=== PATIENT | female | born 1960 | race Caucasian/White ===

== ENCOUNTER 2017-03-12 02:24 | Inpatient (IN) | payer BC ==
[~2017-03-12] VITALS: Ht 170.2 cm; Wt 80.7 kg
[2017-03-12 02:49] LABS: BASOPHILS 0.3 % (0-2); EOSINOPHILS 0.9 % (0-7); HEMATOCRIT 43.5 % (36.0-48.0); HEMOGLOBIN 14.3 g/dL (12-16); IMMATURE GRANULOCYTES 0.4 % (0-5); LYMPHOCYTES 33.8 % (15-50); MCH 29.2 pg (26.0-34.0); MCHC 32.9 g/dL (31.0-37.0); MCV 88.8 fL (80.0-100.0); MEAN PLATELET VOLUME 9.8 fL (7.4-10.4); MONOCYTES 8.5 % (2-11); NEUTROPHILS 56.1 % (40-80); PLATELET COUNT 215 10x3/uL (130-400); RDW 13.1 % (11.5-14.5)
[2017-03-12 03:04] LABS: ALBUMIN 3.6 g/dL (3.4-5.0); ANION GAP 13.2 mmol/L (8-16); BILIRUBIN - TOTAL 0.29 mg/dL (0.2-1.3); CALCIUM 8.5 mg/dL (8.5-10.1); CARBON DIOXIDE 26.9 mmol/L (21.0-32.0); CREATININE - SERUM 0.9 mg/dL (0.6-1.3); POTASSIUM - SERUM 4.1 mmol/L (3.5-5.1); PROTEIN - SERUM 7.1 g/dL (6.4-8.2)
[2017-03-12] MEDS ORDERED: ZOFRAN4 MG PO (05:26)
[2017-03-12] MEDS ORDERED: CARAFATE1 G PO (05:26)
[2017-03-12 05:52] VITALS: BMI 27.9
[2017-03-12 05:59] VITALS: BP 99/60
[2017-03-12 08:13] VITALS: BP 111/75
[2017-03-12 09:54] LABS: APPEARANCE CLEAR (CLEAR); BILIRUBIN NEGATIVE (NEGATIVE); COLOR YELLOW (YELLOW); GLUCOSE NEGATIVE (NEGATIVE); KETONE NEGATIVE (NEGATIVE); LEUKOCYTE ESTERASE NEGATIVE (NEGATIVE); NITRITE NEGATIVE (NEGATIVE); PROTEIN NEGATIVE (NEGATIVE); SPECIFIC GRAVITY 1.015 (1.005-1.020); UROBILINOGEN NORMAL (NORMAL)
[2017-03-12 11:35] VITALS: BP 109/68
[2017-03-12 12:51] VITALS: Ht 170.2 cm; Wt 80.7 kg
[2017-03-12 15:55] LABS: BASOPHILS 0.2 % (0-2); EOSINOPHILS 0.9 % (0-7); HEMATOCRIT 43.2 % (36.0-48.0); HEMOGLOBIN 13.8 g/dL (12-16); IMMATURE GRANULOCYTES 0.4 % (0-5); LYMPHOCYTES 36.8 % (15-50); MCH 29.1 pg (26.0-34.0); MCHC 31.9 g/dL (31.0-37.0); MONOCYTES 8.4 % (2-11); NEUTROPHILS 53.3 % (40-80); RBC 4.75 10x6/uL (4.00-5.40); RDW 13.1 % (11.5-14.5); WBC 5.7 10x3/uL (4.8-10.8)
[2017-03-12 16:26] LABS: CALCIUM 8.2 mg/dL (8.5-10.1); CARBON DIOXIDE 29.9 mmol/L (21.0-32.0); CREATININE - SERUM 0.9 mg/dL (0.6-1.3); POTASSIUM - SERUM 3.9 mmol/L (3.5-5.1)
[2017-03-12 16:29] VITALS: BP 92/55
[2017-03-12 16:45] LABS: APTT 29.1 SECONDS (22.8-39.4); INR 1.02 (0.85-1.17); MCV 90.9 fL (80.0-100.0); PLATELET COUNT 169 10x3/uL (130-400); PROTIME 13.3 SECONDS (11.6-15.0)
--- NOTE | 2017-03-12 18:40 | NUR ---
PATIENT IN BED WITH IV INTACT. COMPLAINTS OF NECK PAIN AT THIS TIME. HOT PACK GIVEN TO PATIENT. PAIN PUMP ON AND WORKING. WANTS TYLENOL AT 1999 WHEN DUE FOR HEADACHE. FAMILY AT BEDSIDE, CALL LIGHT WITHIN REACH.
[2017-03-12 19:00] VITALS: BP 110/66
--- NOTE | 2017-03-12 20:47 | NUR ---
AWAKE,ALERT,ORIENTED. COMPLAINS OF H/A. TYLENOL SUPP GIVEN PER ORDERS.IV INFUSING TO LEFT HAND WIHOUT REDNESS OR EDEMA NOTED. UP AD RADHA TO BR. CL IN REACH.
--- NOTE | 2017-03-13 00:35 | NUR ---
PATIENT IS RESTING QUIETLY WITH EYES CLOSED. LAYING ON HER RIGHT SIDE. NO SIGNS OF DISTRESS NOTED. BED IN LOWEST POSITION, CALL LIGHT IN REACH. BED RIALS UP X'S 2.
[2017-03-13 00:55] VITALS: BP 110/52
--- NOTE | 2017-03-13 02:04 | NUR ---
RESTING QUIETLY. NO DISTRESS NOTED. CL IN REACH
[2017-03-13 04:00] VITALS: BP 94/52
[2017-03-13 05:28] LABS: BASOPHILS 0.5 % (0-2); EOSINOPHILS 0.9 % (0-7); HEMATOCRIT 38.4 % (36.0-48.0); HEMOGLOBIN 12.5 g/dL (12-16); IMMATURE GRANULOCYTES 0.2 % (0-5); LYMPHOCYTES 42.7 % (15-50); MCH 29.2 pg (26.0-34.0); MCHC 32.6 g/dL (31.0-37.0); MCV 89.7 fL (80.0-100.0); MONOCYTES 5.7 % (2-11); PLATELET COUNT 189 10x3/uL (130-400); RBC 4.28 10x6/uL (4.00-5.40); RDW 13.2 % (11.5-14.5); WBC 4.4 10x3/uL (4.8-10.8)
[2017-03-13 05:40] LABS: ALBUMIN 2.9 g/dL (3.4-5.0); ANION GAP 8.4 mmol/L (8-16); BILIRUBIN - TOTAL 0.42 mg/dL (0.2-1.3); CALCIUM 7.9 mg/dL (8.5-10.1); CARBON DIOXIDE 29.5 mmol/L (21.0-32.0); CREATININE - SERUM 0.9 mg/dL (0.6-1.3); POTASSIUM - SERUM 3.9 mmol/L (3.5-5.1); PROTEIN - SERUM 5.9 g/dL (6.4-8.2)
--- NOTE | 2017-03-13 06:13 | NUR ---
AWAKE WITH NO COMPLAINTS. CL IN REACH.
[2017-03-13 07:39] VITALS: BP 116/59
--- NOTE | 2017-03-13 08:32 | NUR ---
Patient Name: SAM TREADWELL Admission Status: ER Accout number: [id number] Admission Date: 03-12-2017 : 1960 Admission Diagnosis: Attending: STAR Current LOS: 1 Anticipated DC Date: 03-18-2017 Planned Disposition: Home Primary Insurance: Parental Health [facility] Discharge Planning Comments: CM MET WITH PATIENT REGARDING D/C NEEDS AND PLANS. PATIENT STATED SHE LIVES WITH HER SPOUSE (ELVIS) AND HE WILL DRIVE HER HOME AT DISCHARGE. PATIENT STATED THERE ARE 12 STEPS W/RAILS TO ENTER HER HOME AND NO STAIRS INSIDE. PATIENT IS INDEPENDENT WITH HER CARE AND HAS A GLUCOMETER (CHECKS 2X DAILY) AT HOME. PATIENTS PCP IS DR. LAY IN [place] AND SHE [facility]. PATIENT REFUSED HOME HEALTH AT THIS TIME. CM WILL CONTINUE TO FOLLOW PATIENT WITH D/C NEEDS AND PLANS. PCP DR. LAY ([place]) [facility]- [phone] ELVIS (SPOUSE) [phone] Manager Of Internal Audit: Ernestina Suarez Is the patient Alert and Oriented? Yes 0 * How many steps to enter\exit or inside your home? 12 W/RAILS 0 * PCP DR. LAY [facility] [place] 0 * [facility] * Preadmission Environment Home with Family 0 * ADLs Independent 0 * Equipment Glucometer 0 * List name and contact numbers for known caregivers / representatives who currently or will assist patient after discharge: ELVIS (SPOUSE) [phone] 0 * Community resources currently utilized None 0 * Additional services required to return to the preadmission environment? Yes 0 * Can the patient safely return to the preadmission environment? Yes 0 * Has this patient been hospitalized within the prior 30 days at any hospital? No 0 Grand Total: 0
--- NOTE | 2017-03-13 08:36 | NUR ---
AWAKE AND ALERT. ORIENTED X3. C/O SARKAR AT THIS TIME. LUNGS ARE CLEAR BILATERALLY, NO COUGH NOTED. SKIN IS INTACT WITHOUT REDNESS. REPORTS NAUSEA IS IMPROVED THIS AM BUT STILL SOME THERE. IV IS PATENT WITHOUT REDNESS AT INSERTION SITE. DENIES NEEDS.
--- NOTE | 2017-03-13 10:30 | NUR ---
DR. YE HERE. NEW ORDERS FOR CLEAR LIQUID RECEIVED. PATIENT VERY HAPPY FOR THIS.
--- NOTE | 2017-03-13 11:50 | NUR ---
FSBS 74. NO COVERAGE REQUIRED.
[2017-03-13 12:17] VITALS: BP 137/84
[2017-03-13 14:00] LABS: CKMB 0.2 U/L (0.0-3.6); CREATINE KINASE 67 UL (21-215)
[2017-03-13 14:04] LABS: TROPONIN-I < 0.017 ng/mL (0.000-0.060)
--- NOTE | 2017-03-13 14:27 | NUR ---
REQUESTED AND GIVNE 25MG DEMEROL SLOW IVP FOR C/O ABDOMINIAL PAIN LEVEL 9. WILL MONITOR.
[2017-03-13 15:35] VITALS: BP 117/69
--- NOTE | 2017-03-13 18:00 | NUR ---
ATE PART OF CL SUPPER. FSBS 133. USED PATIENTS MACHINE. NO COVERAGE REQUIRED. NO CHANGES NOTED AT THIS TIME. DENIES NEEDS. AT BEDSIDE.
[2017-03-13 18:57] LABS: CKMB 0.3 U/L (0.0-3.6); CREATINE KINASE 75 UL (21-215)
[2017-03-13 18:59] LABS: TROPONIN-I < 0.017 ng/mL (0.000-0.060)
[2017-03-13 19:00] VITALS: BP 118/62
--- NOTE | 2017-03-13 19:35 | NUR ---
RECIEVED SHIFT REPORT. PT IS LYING IN BED. ALERT AND ORIENTED AND ABLE TO VERBALIZE NEEDS. IV IS PATENT AND FLUIDS ARE RUNNING PER ORDER. PT IS AMBULATORY BUT WAS INSTRUCTED TO CALL FOR ANY ASSISTANCE NEEDED. PT STATES PAIN IS 8/10. NO NEEDS ARE VERBALIZED AT THIS TIME. WILL CONTINUE TO MONITOR. SIDE RAILS ARE UP X 2. BED IS IN LOWEST POSITION. CALL LIGHT IS WITHIN REACH.
--- NOTE | 2017-03-13 20:40 | NUR ---
SHIFT ASSESSMENT COMPLETED. PT C/O PAIN 03/21. ADMINISTERED PRESCRIBED PRN DEMEROL PER ORDER. ANTIBIOTIC HUNG PER ORDER. PT REFUSES SCHEDULED SENEKOT TABS STATING SHE IS STARTING TO HAVE BOWEL MOVEMENTS FROM SUPPOSITORIES. NO FURTHER NEEDS. WILL MONITOR. SIDE RAILS X 2. BED LOW. CALL LIGHT IN REACH.
[2017-03-14 04:00] VITALS: BP 101/52
[2017-03-14 05:23] LABS: BASOPHILS 0.2 % (0-2); EOSINOPHILS 0.9 % (0-7); HEMATOCRIT 39.3 % (36.0-48.0); HEMOGLOBIN 12.7 g/dL (12-16); IMMATURE GRANULOCYTES 0.2 % (0-5); LYMPHOCYTES 36.3 % (15-50); MCH 28.7 pg (26.0-34.0); MCHC 32.3 g/dL (31.0-37.0); MCV 88.7 fL (80.0-100.0); MEAN PLATELET VOLUME 10.2 fL (7.4-10.4); MONOCYTES 5.5 % (2-11); NEUTROPHILS 56.9 % (40-80); PLATELET COUNT 188 10x3/uL (130-400); RBC 4.43 10x6/uL (4.00-5.40); WBC 5.6 10x3/uL (4.8-10.8)
[2017-03-14 05:55] LABS: ALBUMIN 3.2 g/dL (3.4-5.0); BILIRUBIN - TOTAL 0.49 mg/dL (0.2-1.3); CALCIUM 8.4 mg/dL (8.5-10.1); CARBON DIOXIDE 27.6 mmol/L (21.0-32.0); CREATININE - SERUM 0.9 mg/dL (0.6-1.3); POTASSIUM - SERUM 3.6 mmol/L (3.5-5.1); PROTEIN - SERUM 6.5 g/dL (6.4-8.2)
--- NOTE | 2017-03-14 07:51 | NUR ---
AWAKE AND ALERT. ORIENTED X3. NO C/O THIS AM. LUNGS ARE CLEAR BILATERALLY, NO COUGH NOTED. SKIN IS INTACT WITHOUT REDNESS. IV TO LEFT HAND IS PATENT WITHOUT REDNESS. DENIES NEEDS.
[2017-03-14 08:31] VITALS: BP 108/66
--- NOTE | 2017-03-14 10:05 | NUR ---
UP TO SHOWER WITH SET UP ASSIST.
[2017-03-14 12:00] VITALS: BP 103/68
--- NOTE | 2017-03-14 12:00 | NUR ---
FSBS 109. NO COVERAGE REQUIRED.
--- NOTE | 2017-03-14 13:45 | NUR ---
REQUESTED AND GIVEN 25MG DEMEROL SLOW IVP FOR C/O ABDOMINAL PAIN LEVEL 3. WILL MONITOR.
[2017-03-14 15:47] VITALS: BP 105/54
--- NOTE | 2017-03-14 15:58 | NUR ---
RESTING QUIETLY IN BED WITH EYES CLOSED. C/O INCREASED PAIN AND NAUSEA IN ABDOMEN. WILL MONITOR.
--- NOTE | 2017-03-14 18:49 | NUR ---
REFUSED SUPPER TRAY TONIGHT. AT BEDSIDE. DENIES NEEDS. NO CHANGES NOTED.
[2017-03-14 19:50] VITALS: BP 124/68
--- NOTE | 2017-03-14 20:38 | NUR ---
AWAKE,ALERT. COMPLAINTS OF ABD AND HEADACHE PAIN. DEMEROL GIVEN PER ORDERS. IV INFUSING TO LEFT HAND WIHTOUT REDNESSS OR EDEMA NOTED. CL IN REACH
--- NOTE | 2017-03-14 21:15 | NUR ---
RECIEVED FROM RECOVERY ROOM. RESPONDS TO VERBAL STIMULI. DRSG TO RIGHT HIP DRY/INTACT. SPO2 @ 93 %. NO DISTRESS NOTED. LOPEZ PATENT AND DRAINING CL YELLOW URINE..CJ ROXIE ON. SIDE RAILS UP X 2. CL IN REACH
[2017-03-15 00:05] VITALS: BP 105/48
[2017-03-15 04:00] VITALS: BP 109/63
--- NOTE | 2017-03-15 04:58 | NUR ---
RN NOTE: PT RESTING QUIELTY IN SUPINE POSITION WITH EYES CLOSED AND UNLABORED BREATHING. IV IN RIGHT HAND PATENT WITH NS INFUSING AT 125 ML / HR. WILL CONTINUE TO MONITOR FOR NEEDS.
[2017-03-15 06:07] LABS: BASOPHILS 0.2 % (0-2); EOSINOPHILS 0.8 % (0-7); HEMOGLOBIN 12.9 g/dL (12-16); IMMATURE GRANULOCYTES 0.4 % (0-5); LYMPHOCYTES 36.5 % (15-50); MCH 29.1 pg (26.0-34.0); MCHC 33.1 g/dL (31.0-37.0); MONOCYTES 7.2 % (2-11); NEUTROPHILS 54.9 % (40-80); PLATELET COUNT 186 10x3/uL (130-400); RBC 4.43 10x6/uL (4.00-5.40); WBC 5.3 10x3/uL (4.8-10.8)
[2017-03-15 06:21] LABS: ALBUMIN 3.2 g/dL (3.4-5.0); ALKALINE PHOSPHATASE 63 U/L (46-116); ALT (SGPT) 59 U/L (10-68); AMYLASE - SERUM 43 U/L (25-115); BILIRUBIN - TOTAL 0.39 mg/dL (0.2-1.3); CALC OSMOLALITY 275 mosm/kg (275-300); CALCIUM 8.3 mg/dL (8.5-10.1); CARBON DIOXIDE 27.5 mmol/L (21.0-32.0); CHLORIDE - SERUM 105 mmol/L (98-107); CREATININE - SERUM 0.8 mg/dL (0.6-1.3); GLUCOSE 83 mg/dL (74-106); LIPASE 156 U/L (73-393); POTASSIUM - SERUM 3.6 mmol/L (3.5-5.1); PROTEIN - SERUM 6.5 g/dL (6.4-8.2); SODIUM 140 mmol/L (136-145); UREA NITROGEN 7 mg/dL (7-18); eGFR NON AFRICAN AMERICAN 78 mL/min (90-120)
--- NOTE | 2017-03-15 07:39 | NUR ---
AWAKE AND ALERT. ORIENTED X3. NO C/O THIS AM. LUNGS ARE CLEAR BILATERALLY, NO COUGH NOTED. SKIN IS INTACT WITHOUT REDNESS. IV TO LEFT HAND PATENT WITHOUT REDNESS AT INSERTION SITE. DENIES NEEDS.
[2017-03-15 07:55] VITALS: BP 119/69
--- NOTE | 2017-03-15 11:23 | NUR ---
CONTINUES WITH C/O INCREASED NAUSEA. GIVEN 8MG ZOFRAN SLOW IVP FOR SAME. WILL MONITOR.
--- NOTE | 2017-03-15 11:54 | NUR ---
REQUESTED AND GIVEN 25MG DEMEROL SLOW IVP FOR C/O ABDOMINAL PAIN LEVEL 9. WILL MONITOR.
--- NOTE | 2017-03-15 12:00 | NUR ---
FSBS 68. NO COVERAGE.
[2017-03-15 12:17] VITALS: BP 118/66
--- NOTE | 2017-03-15 13:46 | NUR ---
RESTING QUIETLY AT THIS TIME. PAIN IMPROVED SLIGHTLY. NAUSEA IMPROVED WELL WILL CONTINUE TO MONITOR.
--- NOTE | 2017-03-15 14:14 | NUR ---
NUTRITION MONITORING & EVAL CHART REVIEWED, PT CONTINUES CLEAR LIQUID DIET. IF UNABLE TO ADVANCE DIET 48 TO 72 HOURS, WILL NEED TO CONSIDER NUTRITION SUPPORT. RD FOLLOWING
--- NOTE | 2017-03-15 15:19 | NUR ---
RESTING QUIETLY IN BED WITH EYES CLOSED. RESPIRATIONS EVEN AND UNLABORED.
[2017-03-15 15:56] VITALS: BP 110/59
--- NOTE | 2017-03-15 19:00 | NUR ---
REPORT RECIEVED, INITIAL ASSESSMENT COMPLETE, PLEASE SEE FLOW SHEETS FOR DETAILS. BED LOW AND LOCKED, IN ROOM. CALL LIGHT IN REACH. WILL CPOC.
--- NOTE | 2017-03-15 19:01 | NUR ---
FEELING SLIGHTLY BETTER AT THIS TIME. FSBS 132. NO COVERAGE REQUIRED. NO CHANGES NOTED.
--- NOTE | 2017-03-15 19:54 | NUR ---
C/O PAIN IN ABDOMEN, GAVE DEMEROL PER ORDERS.
[2017-03-15 20:00] VITALS: BP 108/66
[2017-03-16] VITALS: BP 115/55
--- NOTE | 2017-03-16 01:02 | NUR ---
SLEEPING, NO SIGNS OF DISTRESS, BED LOW AND LOCKED, CALL LIGHT IN REACH. WILL CPOC.
[2017-03-16 03:59] VITALS: BP 102/56
[2017-03-16 06:26] LABS: BASOPHILS 0.2 % (0-2); EOSINOPHILS 1.1 % (0-7); HEMATOCRIT 37.9 % (36.0-48.0); HEMOGLOBIN 12.4 g/dL (12-16); IMMATURE GRANULOCYTES 0.4 % (0-5); LYMPHOCYTES 35.4 % (15-50); MCH 28.7 pg (26.0-34.0); MCHC 32.7 g/dL (31.0-37.0); MCV 87.7 fL (80.0-100.0); MEAN PLATELET VOLUME 10.1 fL (7.4-10.4); NEUTROPHILS 56.9 % (40-80); PLATELET COUNT 180 10x3/uL (130-400); RBC 4.32 10x6/uL (4.00-5.40); RDW 12.8 % (11.5-14.5); WBC 5.3 10x3/uL (4.8-10.8)
[2017-03-16 06:46] LABS: ALKALINE PHOSPHATASE 59 U/L (46-116); ALT (SGPT) 46 U/L (10-68); AMYLASE - SERUM 43 U/L (25-115); BILIRUBIN - TOTAL 0.34 mg/dL (0.2-1.3); CALC OSMOLALITY 275 mosm/kg (275-300); CALCIUM 8.1 mg/dL (8.5-10.1); CARBON DIOXIDE 26.7 mmol/L (21.0-32.0); CHLORIDE - SERUM 106 mmol/L (98-107); CREATININE - SERUM 0.7 mg/dL (0.6-1.3); GLUCOSE 80 mg/dL (74-106); LIPASE 145 U/L (73-393); POTASSIUM - SERUM 3.4 mmol/L (3.5-5.1); PROTEIN - SERUM 6.1 g/dL (6.4-8.2); SODIUM 140 mmol/L (136-145); UREA NITROGEN 6 mg/dL (7-18); eGFR NON AFRICAN AMERICAN > 90 mL/min (90-120)
[2017-03-16 07:57] VITALS: BP 139/72
--- NOTE | 2017-03-16 10:20 | NUR ---
ALERT IN BED. NO SIGNS OF DISTRESS NOTED. PRIMARY NURSE JESUSITA CALVERT AT BEDSIDE. CALL LIGHT IN REACH.
--- NOTE | 2017-03-16 10:50 | NUR ---
A&O, DENIES NEEDS, SHOWERED THIS AM, READY TO GO HOME, BED LOWEST POSITION, CALL LIGHT IN REACH, WILL CONTINUE TO MONITOR
[2017-03-16 12:01] VITALS: BP 134/73
--- NOTE | 2017-03-16 18:15 | NUR ---
DISCHARGE PAPERS AND INSTRUCTIONS GIVEN TO PT AND , QUESTIONS ANSWERED, IV REMOVED TIP INTACT, DISCHARGED WITH BELONGINGS PER WC
== END 2017-03-16 18:17 | disposition home or self-care (01) | DRG 439 ==
LOC: D.ER 02:24 → D.MS 04:55 → OBSVTIME 04:55 → D.MS 04:56
PROVIDERS: Family Medicine; ADMIT Family Medicine
DX: K85.90 Acute pancreatitis without necrosis or infection, unspecified (principal); K31.1 Adult hypertrophic pyloric stenosis; T46.6X5A Adverse effect of antihyperlipidemic and antiarteriosclerotic drugs, initial encounter; T47.1X5A Adverse effect of other antacids and anti-gastric-secretion drugs, initial encounter; J45.909 Unspecified asthma, uncomplicated; E11.65 Type 2 diabetes mellitus with hyperglycemia; K21.9 Gastro-esophageal reflux disease without esophagitis; F41.8 Other specified anxiety disorders; K59.00 Constipation, unspecified

== ENCOUNTER 2019-04-02 11:57 | Outpatient (CLI) | payer BC ==
[2017-03-12 12:51] VITALS: BMI 27.9
[~2019-04-02 11:57] MED LIST: CARAFATE1 G PO; ZOFRAN4 MG PO
[2019-04-02 12:26] LABS: BASOPHILS 0.3 % (0-2); EOSINOPHILS 0.4 % (0-7); HEMATOCRIT 43.4 % (36.0-48.0); HEMOGLOBIN 14.7 g/dL (12-16); IMMATURE GRANULOCYTES 0.3 % (0-5); LYMPHOCYTES 35.7 % (15-50); MCH 29.4 pg (26.0-34.0); MCHC 33.9 g/dL (31.0-37.0); MCV 86.8 fL (80.0-100.0); MEAN PLATELET VOLUME 9.8 fL (7.4-10.4); MONOCYTES 7.8 % (2-11); NEUTROPHILS 55.5 % (40-80); PLATELET COUNT 193 10x3/uL (130-400); RDW 13.1 % (11.5-14.5); WBC 6.9 10x3/uL (4.8-10.8)
[2019-04-02 12:51] LABS: ANION GAP 13.2 mmol/L (8-16); BILIRUBIN - DIRECT 0.08 mg/dL (0.00-0.30); BILIRUBIN - INDIRECT 0.27 mg/dL (0.00-1.00); BILIRUBIN - TOTAL 0.35 mg/dL (0.2-1.3); CALCIUM 9.3 mg/dL (8.5-10.1); CARBON DIOXIDE 27.6 mmol/L (21.0-32.0); CREATININE - SERUM 0.9 mg/dL (0.6-1.3); POTASSIUM - SERUM 3.8 mmol/L (3.5-5.1); PROTEIN - SERUM 7.3 g/dL (6.4-8.2)
== END 2019-04-02 11:58 | disposition home or self-care (01) ==
LOC: D.LAB 11:57 → EDSTATUS 17:37
PROVIDERS: ATTEND Internal Medicine Gastroenterology
DX: R10.13 Epigastric pain (principal); Z01.812 Encounter for preprocedural laboratory examination

== ENCOUNTER → 2019-05-01 06:55 | Outpatient (CLI) | payer BC ==
[2017-03-12 12:51] VITALS: BMI 27.9
[2019-05-02 05:09] LABS: HEPATITIS C ANTIBODY <0.1 (0.0-0.9)
== END | disposition home or self-care (01) ==
LOC: D.US 06:55
PROVIDERS: ATTEND Internal Medicine Gastroenterology
DX: R10.9 Unspecified abdominal pain (principal); R11.0 Nausea

== ENCOUNTER → 2019-05-11 09:33 | Outpatient (CLI) | payer BC ==
[2017-03-12 12:51] VITALS: BMI 27.9
[2019-05-11 11:22] LABS: % SATURATION 25 % (15-55); IRON 75 ug/dl (35-150); TOTAL IRON BIND CAPACITY 296 ug/dl (260-445); UNSAT IRON BIND CAPACITY 221 ug/dl (150-375)
[2019-05-11 11:25] LABS: CHOL - HDL RATIO 6.8 ratio (2.3-4.1); LDL-HDL RATIO 4.4 ratio (1.5-3.5)
[2019-05-12 10:11] LABS: ANA REFLEX - DIRECT Negative (Negative)
[2019-05-13 12:09] LABS: SMOOTH MUSCLE ABS (ACTIN) 5 Units (0-19)
[2019-05-13 13:10] LABS: MITOCHONDRIAL ANTIBODY <20.0 Units (0.0-20.0)
== END | disposition home or self-care (01) ==
LOC: D.LAB 09:33
PROVIDERS: ATTEND Internal Medicine Gastroenterology
DX: R11.2 Nausea with vomiting, unspecified (principal); R10.13 Epigastric pain; R16.0 Hepatomegaly, not elsewhere classified

== ENCOUNTER → 2019-06-01 10:52 | Outpatient (CLI) | payer MEDICAID ==
[2017-03-12 12:51] VITALS: BMI 27.9
== END | disposition home or self-care (01) ==
LOC: D.NM 10:52
PROVIDERS: ATTEND Internal Medicine Gastroenterology
DX: K21.9 Gastro-esophageal reflux disease without esophagitis (principal); R10.9 Unspecified abdominal pain; R11.0 Nausea

== ENCOUNTER → 2019-11-02 08:54 | Outpatient (CLI) | payer MEDICAID ==
[2017-03-12 12:51] VITALS: BMI 27.9
[2019-11-02 09:46] LABS: ALBUMIN 3.7 g/dL (3.4-5.0); BILIRUBIN - DIRECT 0.1 mg/dL (0.00-0.30); BILIRUBIN - INDIRECT 0.12 mg/dL (0.00-1.00); BILIRUBIN - TOTAL 0.22 mg/dL (0.2-1.3); PROTEIN - SERUM 7.3 g/dL (6.4-8.2)
== END | disposition home or self-care (01) ==
LOC: D.LAB 08:54 → D.US 09:30
PROVIDERS: ATTEND Internal Medicine Gastroenterology
DX: K76.0 Fatty (change of) liver, not elsewhere classified (principal)

== ENCOUNTER → 2020-05-03 08:34 | Outpatient (CLI) | payer MEDICAID ==
[2017-03-12 12:51] VITALS: BMI 27.9
[2020-05-03 09:34] LABS: ALBUMIN 3.8 g/dL (3.4-5.0); BILIRUBIN - DIRECT 0.1 mg/dL (0.00-0.30); BILIRUBIN - INDIRECT 0.35 mg/dL (0.00-1.00); BILIRUBIN - TOTAL 0.45 mg/dL (0.2-1.3); PROTEIN - SERUM 7.1 g/dL (6.4-8.2)
== END | disposition home or self-care (01) ==
LOC: D.LAB 08:34 → D.US 09:00
PROVIDERS: ATTEND Internal Medicine Gastroenterology
DX: K76.0 Fatty (change of) liver, not elsewhere classified (principal)